=== PATIENT | female | born 1970 | race Caucasian/White ===

== ENCOUNTER 2017-03-26 13:44 | Outpatient (CLI) | payer MEDICARE, MEDICAID | END 2017-03-26 13:45 | disposition home or self-care (01) | LOC: CTENTCT 13:44 | PROVIDERS: ATTEND Otolaryngology Plastic Surgery within the Head & Neck | DX: J32.8 Other chronic sinusitis (principal) | CPT/HCPCS: 70486 ==

== ENCOUNTER 2017-04-15 10:02 | Day surgery (SDC) | payer MEDICARE, MEDICAID ==
[2017-04-14 13:01] VITALS: BMI 30.1
[2017-04-15] MEDS ORDERED: Oxymetazoline HCl 0.05% ( 15 ML ) ONE ×2 (11:01→12:44)
[2017-04-15 11:31] LABS: BHCG - Serum Negative (NEGATIVE); Pregs Control Background? CLEAR/WHITE (CLR/WHITE); Pregs Control Bar Appear? YES (CONTROL BAR)
[2017-04-15] MEDS ORDERED: Lidocaine 1% w/Epinephrine 1:200K 30 ML VIAL ONE (12:44)
[2017-04-15] MEDS ORDERED: Ondansetron HCl/PF 4 MG/2 ML Vial ONE ×2 (13:05→16:12)
[2017-04-15] MEDS ORDERED: Famotidine/PF 20 mg/2ml Vial ONE (13:05)
[2017-04-15] MEDS ORDERED: Fentanyl 100 MCG/2 ML VIAL ONE (13:05)
[2017-04-15] MEDS ORDERED: Hydrocodone-Acetamin 15 ML UDCUP ONE (15:28)
[2017-04-15] MEDS ORDERED: Dexamethasone 20 MG/5 ML VIAL ONE (16:12)
[2017-04-15] MEDS ORDERED: Succinylcholine Chloride 20 MG/ML 10 ml SYRINGE FS ONE (16:12)
[2017-04-15] MEDS ORDERED: Lidocaine 1% PF 5 ML VIAL ONE (16:12)
[2017-04-15] MEDS ORDERED: PROPOFOL 200 MG/20 ML VIAL ONE (16:12)
--- NOTE | 2017-04-15 20:12 | OP ---
PREOPERATIVE DIAGNOSES: 1. Chronic rhinosinusitis. 2. Bilateral inferior turbinate hypertrophy. 3. Headaches. 4. Left middle turbinate meena bullosa. POSTOPERATIVE DIAGNOSES: 1. Chronic rhinosinusitis. 2. Bilateral inferior turbinate hypertrophy. 3. Headaches. 4. Left middle turbinate meena bullosa. PROCEDURES: 1. Bilateral endoscopic sinus surgery, total ethmoidectomies. 2. Bilateral endoscopic sinus surgery, maxillary antrostomies with removal of tissue on the right. 3. Bilateral endoscopic sinus surgery, frontal sinusotomies. 4. Bilateral inferior turbinate submucosal resection. 5. Endoscopic resection of left middle turbinate meena bullosa. PROCEDURE IN DETAIL: The patient was taken to the operating room and placed supine on the table, gen eral endotracheal anesthesia was obtained by the Anesthesia staff. Tube was secured in the left lowe r lip. Patient was placed in the beach chair position. Afrin pledgets placed in the nasal cavity. Following this, patient was then prepped and draped in standard surgical fashion. Following this, th e Afrin pledgets were removed. A 0 degree scope was advanced in the middle meatus. The left middle turbinate was incised vertically with a sickle knife on its anterior face and then a straight Blakesl ey forceps and microdebrider were used to resect the lateral portion of the left middle turbinate con alice bullosa. Following this, the uncinate process was identified bilaterally and was anteriorly frac tured using a ball-ended probe, the 0 degree straight microdebrider and the upbiting Blakesley forcep s were then used to remove the uncinate process. This exposed bilaterally and was exposed the maxill lucio ostia bilaterally that which was then widened using the Blakesley forceps and the straight microd ebrider. Following this, the right maxillary sinus was full of gelatinous debris, which was removed using the curved microdebrider. Following this, the ethmoidal bulla was identified and was punctured on its medial and inferior aspect bilaterally and then was removed completely using the microdebride r and upbiting Blakesley forceps. Following this, the grand lamella was identified and was then punc tured into the posterior ethmoidal cells using the De tip suction bilaterally. Working from pos terior to anterior, the ethmoidal cells were opened in a mucosal-sparing technique using the straight microdebrider and curved microdebrider and upbiting Blakesley forceps. Following this, 45 degree en doscope along with 40 degree curved microdebrider blade was then used to further open the frontal rec ess cells and frontal sinus ostia bilaterally. The patient tolerated the procedure well. ADDENDUM: Following this, the bilateral inferior vessels were dissected using the submucosal microdebrider, whi ch was inserted into the anterior and inferior portions of the inferior turbinates bilaterally. Infe rior turbinates were then submucosally resected in the anterior and inferior portions. The patient t olerated the procedure well.
== END 2017-04-15 15:55 | disposition home or self-care (01) ==
LOC: SDC 10:02
PROVIDERS: ATTEND Otolaryngology Plastic Surgery within the Head & Neck
PROC: 099R8ZZ Drainage of Left Maxillary Sinus, Via Natural or Artificial Opening Endoscopic (ICD-10-PCS; principal; 2017-04-15)
PROC: 099Q8ZZ Drainage of Right Maxillary Sinus, Via Natural or Artificial Opening Endoscopic (ICD-10-PCS; 2017-04-15)
PROC: 09TL8ZZ Resection of Nasal Turbinate, Via Natural or Artificial Opening Endoscopic (ICD-10-PCS; 2017-04-15)
PROC: 09TL8ZZ Resection of Nasal Turbinate, Via Natural or Artificial Opening Endoscopic (ICD-10-PCS; 2017-04-15)
PROC: 09TV8ZZ Resection of Left Ethmoid Sinus, Via Natural or Artificial Opening Endoscopic (ICD-10-PCS; 2017-04-15)
PROC: 09TU8ZZ Resection of Right Ethmoid Sinus, Via Natural or Artificial Opening Endoscopic (ICD-10-PCS; 2017-04-15)
PROC: 09BT8ZZ Excision of Left Frontal Sinus, Via Natural or Artificial Opening Endoscopic (ICD-10-PCS; 2017-04-15)
PROC: 09BS8ZZ Excision of Right Frontal Sinus, Via Natural or Artificial Opening Endoscopic (ICD-10-PCS; 2017-04-15)
PROC: 09TL8ZZ Resection of Nasal Turbinate, Via Natural or Artificial Opening Endoscopic (ICD-10-PCS; 2017-04-15)
DX: J32.9 Chronic sinusitis, unspecified (principal); J34.3 Hypertrophy of nasal turbinates; J34.9 Unspecified disorder of nose and nasal sinuses; F41.9 Anxiety disorder, unspecified; F32.9 Major depressive disorder, single episode, unspecified; Z79.51 Long term (current) use of inhaled steroids; Z79.899 Other long term (current) drug therapy; Z88.0 Allergy status to penicillin; Z88.6 Allergy status to analgesic agent; Z88.8 Allergy status to other drugs, medicaments and biological substances; Z91.041 Radiographic dye allergy status; Z90.89 Acquired absence of other organs; Z90.49 Acquired absence of other specified parts of digestive tract; Z98.890 Other specified postprocedural states
CPT/HCPCS: 36415; 84703; 85014; J1100; J2001; J2405; J2704; J3010; S0028

== ENCOUNTER 2019-05-10 14:38 | Outpatient (CLI) | payer MEDICARE, MEDICAID ==
--- NOTE | 2019-05-10 15:43 | RAD ---
THREE VIEWS OF THE LUMBAR SPINE 05/10/19 HISTORY: Back pain with left lower extremity radiculopathy. Bilateral L5 pars defects are present. There is severe disc space narrowing and anterior osteophyte f ormation at L5-S1 with anterolisthesis measuring 2 cm on the neutral imaging, 2 cm on the flexion diana ging, and 2 cm on the extension imaging. No additional areas of anterolisthesis or retrolisthesis no john within the lumbar spine. IMPRESSION: Bilateral L5 pars defects with 2 cm of anterolisthesis of L5 on S1. There is corresponding advanced d egenerative change at the L5-S1 disc space. POS: [facility]
== END 2019-05-10 14:39 | disposition home or self-care (01) ==
LOC: TBSIIMAG 14:38
PROVIDERS: ATTEND Neurological Surgery
DX: M43.16 Spondylolisthesis, lumbar region (principal); M54.5 Low back pain; M54.30 Sciatica, unspecified side; M43.17 Spondylolisthesis, lumbosacral region; M47.817 Spondylosis without myelopathy or radiculopathy, lumbosacral region
CPT/HCPCS: 72100